=== PATIENT | female | born 1990 | race Caucasian/White ===

== ENCOUNTER → 2016-03-02 | Outpatient (REF) | payer OTHER | LOC: M SFHCLERA 16:34 | PROVIDERS: ATTEND Physician Assistant | DX: J02.9 Acute pharyngitis, unspecified (principal) ==

== ENCOUNTER → 2016-03-29 | Outpatient (CLI) | payer OTHER ==
--- NOTE | 2016-03-29 11:04 | REP ---
Chest x-ray: Two views. History: Tuberculosis screening. . Comparison study: No comparison studies. . Findings: The lungs are well inflated and free of infiltrate. The pleural angles are sharp. The heart size is normal. Pulmonary vasculature is not increased. No significant bony abnormality is seen. Impression: Negative chest x-ray.
== END ==
LOC: M CLY 08:02
PROVIDERS: ATTEND Family Medicine
DX: Z11.1 Encounter for screening for respiratory tuberculosis (principal)

== ENCOUNTER → 2016-05-24 | Outpatient (REF) | payer OTHER | LOC: M SFHCLERA 19:03 | PROVIDERS: ATTEND Physician Assistant | DX: R19.7 Diarrhea, unspecified (principal); Z53.9 Procedure and treatment not carried out, unspecified reason ==

== ENCOUNTER → 2016-05-25 | Outpatient (REF) | payer OTHER | LOC: M SFHCLUC 10:34 | PROVIDERS: ATTEND Physician Assistant | DX: R19.7 Diarrhea, unspecified (principal) ==